=== PATIENT | male | born 1975 | race African-American/Black ===

== ENCOUNTER 2018-03-27 15:53 | Emergency (ER) | payer OTHER ==
[~2018-03-27] VITALS: Ht 106.7 cm; Wt 71.3 kg
[2018-03-27 16:54] VITALS: BP 118/77
== END 2018-03-27 20:58 | disposition left against medical advice (07) ==
LOC: ER 15:53
DX: Z53.21 Procedure and treatment not carried out due to patient leaving prior to being seen by health care provider (principal); F17.200 Nicotine dependence, unspecified, uncomplicated